=== PATIENT | male | born 1965 | race Caucasian/White ===

== ENCOUNTER 2018-04-20 18:14 | Observation (INO) | payer OTHER ==
[2018-04-20] MEDS ORDERED: NS 1,000 ML IV ONE ×2 (18:33→19:19)
[2018-04-20] MEDS ORDERED: ASPIRIN 81 MG CHEWABLE TAB PO ONE (18:33)
[2018-04-20] MEDS ORDERED: LORazepam 2 MG/ML INJ IVP ONE ×2 (18:33→19:19)
--- NOTE | 2018-04-20 18:38 | EDPHY ---
General - History Smoking Status: Never smoked Time Seen by Provider: 04/20/18 18:34 Narrative: CHIEF COMPLAINT: Chest pain HISTORY OF PRESENT ILLNESS: Patient provides by private vehicle with complaints of chest pain. Chest pain started approximately 1 hr ago while at work. 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 He describes it as a constant pressure type pain. No worse with exertion. Does not radiate. Does have a mild headache and some shortness of breath. He has no extremity erythema edema or pain. No recent travel, trauma or surgery. He does not use testosterone. He feels though this may be related to his anxiety but the chest pain is different from previous episodes. He also has some mild left-sided abdominal pain at times that is intermittent. He has no back pain. No urinary complaints. No rash. No neck pain or stiffness. No fever. No other associated complaints or modifying factors. REVIEW OF SYSTEMS: 10 systems were reviewed and negative with the exception of the elements mentioned in the history of present illness. PCP: Dr. Muhammad SPECIALISTS: None PAST MEDICAL HISTORY: Hypertension, anxiety, possible gout PAST SURGICAL HISTORY: No abdominal surgeries. SOCIAL HISTORY: Nonsmoker. Occasional alcohol use. No marijuana use. Lives independently. Works at [employer] FAMILY HISTORY: Noncontributory EXAMINATION: General Appearance: Alert, no distress. Anxious and fidgeting. Well- appearing. Head: normocephalic, atraumatic Eyes: Pupils equal and round, no conjunctival pallor or injection ENT, Mouth: Mucous membranes moist Neck: Normal inspection, supple, non-tender Respiratory: Lungs are clear to auscultation Cardiovascular: Tachycardic rate. Regular rhythm. No murmur. No carotid bruit appreciated. Good signs of perfusion distally. Gastrointestinal: Obese Abdomen is soft and nontender. No tympany. No rigidity. No guarding. No palpable mass. Bowel sounds present all 4 quadrants with no abdominal bruit. Back: non-tender, no bony abnormalities Neurological: A&O, nonfocal, normal gait Skin: Warm and dry, no rash Extremities: Nontender, no pedal edema Psychiatric: Mood and affect normal DIFFERENTIAL DIAGNOSES: Including but not limited to anxiety reaction, PE, ACS, pericarditis, pleurisy, pneumonitis, reflux, aortic aneurysm, abdominal aneurysm MDM: 6:30 p.m. Acute retrosternal chest pain with tingling of the hands and mouth and feeling anxious as well. This is somewhat different than his previous anxiety responses as he has chest pain that he typically does not have. He does appear to be anxious. His EKG has been reviewed by Dr. Meade reveals sinus tachycardia without ischemia. He is in no acute distress with vital signs otherwise within normal limits. I have ordered troponin, chest x-ray and laboratory study. I have also ordered fluid and Ativan. 7:20 p.m. Patient re-evaluated. His troponin is negative. Laboratory studies are otherwise within normal limits as well. Chest x-ray is negative. He is feeling minimally better following the initial Ativan, thus I have ordered an additional 1 mg and a 2nd L of IV fluid. Continue to monitor. No acute distress 7:45 p.m. Patient has been evaluated by Dr. Meade. Patient's symptoms have improved but not resolved. Dr. Meade recommends admission for observation to rule out ACS. The patient is agreeable to this and preferable this. 8:20 p.m. Case discussed with hospitalist Dr. Maldonado. We discussed the patient's history , HPI and examination. He will admit the patient is service, and he requested D -dimer at this time. I have added this. He is admitted stable condition. He is no longer tachycardic. 8:40 p.m. D-dimer is within normal limits at less than 0.27. He is admitted stable condition. SUPERVISION: Patient was evaluated and examined in conjunction with my secondary supervising physician as documented. We have both examined the patient. EKG interpretation: Dr. Meade Sinus tachycardia. No ischemia CONSULTATION: None (Ruddy Desai) Medical Decision Making: I evaluated this patient with Jensen. This patient had initially onset of difficulty breathing thought he might be having some anxiety or panic issues and then developed some significant substernal chest pressure. The patient still seems quite anxious and even though his initial cardiac enzymes and EKG years significantly unremarkable this patient has never had a provocative test and has a family history of importance. I will admit this patient hospitalist and get provocative testing by Cardiology tomorrow. Patient would prefer this plan is post outpatient workup and after talking to the patient I believe it is the most conservative course. (Jalen Meade) - Diagnostics Imaging Results: Imaging Impressions Chest X-Ray 04/20/18 18:33 Impression: Negative portable chest - Objective Vital Signs: Initial Vital Signs Temperature (C) 97.5 F 04/20/18 18:16 Heart Rate 122 H 04/20/18 18:16 Respiratory Rate 22 H 04/20/18 18:16 Blood Pressure 198/101 H 04/20/18 18:16 O2 Sat (%) 96 04/20/18 18:16 O2 Delivery Mode Room Air Allergies/Adverse Reactions: Penicillins Allergy (Intermediate, Verified 06/20/16 00:12) Hives Home Medications: Medication Instructions Recorded Benacar 06/09/09 Hydrochlorothiazide [HCTZ (*)] 25 mg PO 06/09/09 Xanax 06/09/09 Famotidine [Pepcid] 40 mg PO DAILY #7 tablet 06/11/15 oxyCODONE/APAP 5/325 [Percocet 1 tab PO Q4-6PRN PRN #14 tab 06/11/15 5/325] HYDROcodone/APAP 10/325 [Ulysses 1 - 2 each PO Q4-6PRN PRN #20 tab 06/13/15 10/325] Ondansetron Odt [Zofran Odt 4 mg 4 mg PO Q4 PRN #10 tab 06/13/15 (RX)] Colchicine 0.6 mg PO 06/20/16 oxyCODONE/APAP 5/325 [Percocet 1 - 2 tab PO Q4H PRN #10 tab 06/20/16 5/325 (*)] Laboratory Results: Laboratory Results 04/20/18 18:30 04/20/18 18:30 04/20/18 04/20/18 04/20/18 18:33 18:30 18:30 WBC RBC Hgb Hct MCV MCH MCHC RDW Plt Count MPV Neut % (Auto) Lymph % (Auto) Pettis % (Auto) Eos % (Auto) Baso % (Auto) Nucleat RBC Rel Count Absolute Neuts (auto) Absolute Lymphs (auto) Absolute Monos (auto) Absolute Eos (auto) Absolute Basos (auto) Absolute Nucleated RBC Immature Gran % Immature Gran # D-Dimer < 0.27 ug/mLFEU ug/mLFEU (0.00-0.50) Sodium 135 mEq/L mEq/L (135-145) Potassium 4.6 mEq/L mEq/L (3.3-5.0) Chloride 96 mEq/L L mEq/L (97-110) Carbon Dioxide 25 mEq/l mEq/l (22-31) Anion Gap 14 mEq/L mEq/L (8-16) BUN 17 mg/dL mg/dL (7-23) Creatinine 1.2 mg/dL mg/dL (0.7-1.3) Estimated GFR > 60 Glucose 92 mg/dL mg/dL (70-100) Calcium 9.4 mg/dL mg/dL (8.5-10.4) Total Bilirubin 1.3 mg/dL mg/dL (0.1-1.4) Conjugated Bilirubin 0.2 mg/dL mg/dL (0.0-0.5) Unconjugated Bilirubin 1.1 mg/dL mg/dL (0.0-1.1) AST 35 IU/L IU/L (17-59) ALT 35 IU/L IU/L (21-72) Alkaline Phosphatase 91 IU/L IU/L (38-126) POC Troponin I 0.00 ng/mL ng/mL (0.00-0.08) NT-Pro-B Natriuret Pep < 11 pg/mL pg/mL (0-125) Total Protein 8.2 g/dL g/dL (6.3-8.2) Albumin 4.6 g/dL g/dL (3.5-5.0) Lipase 89 IU/L IU/L (23-300) 04/20/18 18:30 WBC 11.49 10^3/uL H 10^3/uL (3.80-9.50) RBC 5.41 10^6/uL 10^6/uL (4.40-6.38) Hgb 15.4 g/dL g/dL (13.7-17.5) Hct 46.1 % % (40.0-51.0) MCV 85.2 fL fL (81.5-99.8) MCH 28.5 pg pg (27.9-34.1) MCHC 33.4 g/dL g/dL (32.4-36.7) RDW 14.8 % % (11.5-15.2) Plt Count 324 10^3/uL 10^3/uL (150-400) MPV 8.4 fL L fL (8.7-11.7) Neut % (Auto) 45.1 % % (39.3-74.2) Lymph % (Auto) 41.8 % % (15.0-45.0) Pettis % (Auto) 10.5 % % (4.5-13.0) Eos % (Auto) 0.9 % % (0.6-7.6) Baso % (Auto) 1.4 % % (0.3-1.7) Nucleat RBC Rel Count 0.0 % % (0.0-0.2) Absolute Neuts (auto) 5.18 10^3/uL 10^3/uL (1.70-6.50) Absolute Lymphs (auto) 4.80 10^3/uL H 10^3/uL (1.00-3.00) Absolute Monos (auto) 1.21 10^3/uL H 10^3/uL (0.30-0.80) Absolute Eos (auto) 0.10 10^3/uL 10^3/uL (0.03-0.40) Absolute Basos (auto) 0.16 10^3/uL H 10^3/uL (0.02-0.10) Absolute Nucleated RBC 0.00 10^3/uL 10^3/uL (0-0.01) Immature Gran % 0.3 % % (0.0-1.1) Immature Gran # 0.04 10^3/uL 10^3/uL (0.00-0.10) D-Dimer Sodium Potassium Chloride Carbon Dioxide Anion Gap BUN Creatinine Estimated GFR Glucose Calcium Total Bilirubin Conjugated Bilirubin Unconjugated Bilirubin AST ALT Alkaline Phosphatase POC Troponin I NT-Pro-B Natriuret Pep Total Protein Albumin Lipase Medications Given: Discontinued Medications Aspirin (Aspirin) 324 mg PO EDNOW ONE Stop: 04/20/18 18:34 Last Admin: 04/20/18 18:38 Dose: 324 mg Sodium Chloride (Ns) 1,000 mls @ 0 mls/hr IV EDNOW ONE; Wide Open PRN Reason: Protocol Stop: 04/20/18 18:34 Last Admin: 04/20/18 18:38 Dose: 1,000 mls Sodium Chloride (Ns) 1,000 mls @ 0 mls/hr IV EDNOW ONE; Wide Open PRN Reason: Protocol Stop: 04/20/18 19:20 Last Admin: 04/20/18 19:28 Dose: 1,000 mls Lorazepam (Ativan Injection) 1 mg IVP EDNOW ONE Stop: 04/20/18 18:34 Last Admin: 04/20/18 18:40 Dose: 1 mg Lorazepam (Ativan Injection) 1 mg IVP EDNOW ONE Stop: 04/20/18 19:20 Last Admin: 04/20/18 19:29 Dose: 1 mg Point of Care Test Results: Chemistry 04/20/18 18:33 POC Troponin I 0.00 ng/mL ng/mL (0.00-0.08) Departure - Departure Disposition: [facility] Inpatient Acute Clinical Impression: Chest pain Qualifiers: Chest pain type: precordial pain Qualified Code(s): R07.2 - Precordial pain Condition: Fair Referrals: Merritt Chiu MD [Primary Care Provider] - As per Instructions
[2018-04-20 18:47] LABS: PLATELET COUNT 324 10^3/uL (150-400)
[2018-04-20] MEDS ORDERED: ONDANSETRON 4 MG/2 ML VIAL IVP PRN (21:04)
[2018-04-20] MEDS ORDERED: ONDANSETRON DISINTEGRATING 4 MG TAB PO PRN (21:04)
[2018-04-20] MEDS ORDERED: PROMETHAZINE HCL 25 MG/ML INJ IVP PRN (21:04)
[2018-04-20] MEDS ORDERED: PROMETHAZINE HCL 25 MG TAB PO PRN (21:04)
[2018-04-20] MEDS ORDERED: ACETAMINOPHEN 325 MG TAB PO PRN (21:04)
[2018-04-20] MEDS ORDERED: NITROGLYCERIN 0.4 MG BTL SL PRN (21:06)
[2018-04-20] MEDS ORDERED: RANITIDINE 50 MG/2 ML VIAL IVP ONE ×2 (21:11→21:26)
[2018-04-20] MEDS ORDERED: RANITIDINE HCL 150 MG/10 ML UDCUP PO ONE (21:30)
--- NOTE | 2018-04-20 21:36 | PDGENHP ---
History and Physical - Chief Complaint Acute chest pain - History of Present Illness Primary care provider: Dr. Merritt Chiu HPI: 53-year-old male presents with acute chest pain characterized as pounding sensation in his chest radiating to his throat with associated shortness of breath, digital paresthesias, abdominal discomfort, headache, anxiety. The patient reports that the onset of symptoms was at rest, while he was at work and they persisted for the next 3 hr. He reports that they were not alleviated by going outside, taking deep breath, and trying to relax. After receiving Ativan and IV fluids upon arrival, the patient's chest discomfort was alleviated , but his tachycardia persisted. The patient reports that prior to his onset of symptoms, he has been experiencing some muscle aches and some sinus congestion. He also reports that he was prescribed antihypertensive medication by his primary care provider approximately 1 month ago, but he has not started it yet. Utilizes Tylenol and Aleve several times per week for joint pains. Utilizes Zantac on a regular basis for esophageal reflux and although he has been prescribed a proton pump inhibitor, he has yet to started. History Information - Allergies/Home Medication List Allergies/Adverse Reactions: Penicillins Allergy (Intermediate, Verified 06/20/16 00:12) Hives Home Medications: Benacar 06/09/09 [Last Taken 06/09/09] Hydrochlorothiazide [HCTZ (*)] 25 mg PO 06/09/09 [Last Taken 06/09/09] Xanax 06/09/09 [Last Taken Unknown] Colchicine 0.6 mg PO 06/20/16 [Last Taken Unknown] I have personally reviewed and updated: family history, medical history, social history, surgical history - Past Medical History GERD (On H2 kamryn), hypertension Additional medical history: Osteoarthritis and gout. Patient reports possible pericarditis in the past as well as previous EKGs indicating pericarditis with Cardiology evaluations when he was in his early 20s without a definitive diagnosis - Surgical History Reports: no pertinent surgical hx - Family History Additional family history: No family history of coronary artery disease, his father had a thoracic aneurysm, sibling had a cerebral aneurysm - Social History Smoking Status: Never smoked Alcohol Use: Occasionally Drug Use: None Additional social history: Patient works in sales, has a fairly stressful job, he does not engage in scheduled exercise but he describes no exertional symptoms recently Review of Systems Review of Systems: ROS: 10pt was reviewed & negative except for what was stated in HPI & below Cardiac: Reports: chest pain Respiratory: Reports: shortness of breath Neurological: Reports: headache Physical Exam Physical Exam: Temp Pulse Resp BP Pulse Ox 36.4 C 100 20 156/106 H 97 04/20/18 18:16 04/20/18 21:15 04/20/18 21:15 04/20/18 21:15 04/20/18 21:15 Constitutional: no apparent distress, not in pain, obese, No uncomfortable Eyes: PERRL, anicteric sclera, EOMI Ears, Nose, Mouth, Throat: moist mucous membranes, hearing normal, ears appear normal, no oral mucosal ulcers Cardiovascular: tachycardia, No systolic murmur, No irregularly irregular, No edema Respiratory: no respiratory distress, no rales or rhonchi, clear to auscultation Gastrointestinal: normoactive bowel sounds, soft, non-tender abdomen, No guarding, No distension Skin: warm, No rash Neurologic: AAOx3, sensation intact bilaterally, No weakness Psychiatric: interacting appropriately, not anxious, not encephalopathic, thought process linear Lymph, Heme, Immunologic: other (Tender bilateral submandibular lymph nodes approximately 2 cm in diameter, without any anterior posterior cervical lymphadenopathy) Lab Data & Imaging Review 04/20/18 18:30 04/20/18 18:30 WBC 11.49 10^3/uL (3.80-9.50) H 04/20/18 18:30 RBC 5.41 10^6/uL (4.40-6.38) 04/20/18 18:30 Hgb 15.4 g/dL (13.7-17.5) 04/20/18 18:30 Hct 46.1 % (40.0-51.0) 04/20/18 18:30 MCV 85.2 fL (81.5-99.8) 04/20/18 18:30 MCH 28.5 pg (27.9-34.1) 04/20/18 18:30 MCHC 33.4 g/dL (32.4-36.7) 04/20/18 18:30 RDW 14.8 % (11.5-15.2) 04/20/18 18:30 Plt Count 324 10^3/uL (150-400) 04/20/18 18:30 MPV 8.4 fL (8.7-11.7) L 04/20/18 18:30 Neut % (Auto) 45.1 % (39.3-74.2) 04/20/18 18:30 Lymph % (Auto) 41.8 % (15.0-45.0) 04/20/18 18:30 Winkler % (Auto) 10.5 % (4.5-13.0) 04/20/18 18:30 Eos % (Auto) 0.9 % (0.6-7.6) 04/20/18 18:30 Baso % (Auto) 1.4 % (0.3-1.7) 04/20/18 18:30 Nucleat RBC Rel Count 0.0 % (0.0-0.2) 04/20/18 18:30 Absolute Neuts (auto) 5.18 10^3/uL (1.70-6.50) 04/20/18 18:30 Absolute Lymphs (auto) 4.80 10^3/uL (1.00-3.00) H 04/20/18 18:30 Absolute Monos (auto) 1.21 10^3/uL (0.30-0.80) H 04/20/18 18:30 Absolute Eos (auto) 0.10 10^3/uL (0.03-0.40) 04/20/18 18:30 Absolute Basos (auto) 0.16 10^3/uL (0.02-0.10) H 04/20/18 18:30 Absolute Nucleated RBC 0.00 10^3/uL (0-0.01) 04/20/18 18:30 Immature Gran % 0.3 % (0.0-1.1) 04/20/18 18:30 Immature Gran # 0.04 10^3/uL (0.00-0.10) 04/20/18 18:30 D-Dimer < 0.27 ug/mLFEU (0.00-0.50) 04/20/18 18:30 Sodium 135 mEq/L (135-145) 04/20/18 18:30 Potassium 4.6 mEq/L (3.3-5.0) 04/20/18 18:30 Chloride 96 mEq/L (97-110) L 04/20/18 18:30 Carbon Dioxide 25 mEq/l (22-31) 04/20/18 18:30 Anion Gap 14 mEq/L (8-16) 04/20/18 18:30 BUN 17 mg/dL (7-23) 04/20/18 18:30 Creatinine 1.2 mg/dL (0.7-1.3) 04/20/18 18:30 Estimated GFR > 60 04/20/18 18:30 Glucose 92 mg/dL (70-100) 04/20/18 18:30 Calcium 9.4 mg/dL (8.5-10.4) 04/20/18 18:30 Total Bilirubin 1.3 mg/dL (0.1-1.4) 04/20/18 18:30 Conjugated Bilirubin 0.2 mg/dL (0.0-0.5) 04/20/18 18:30 Unconjugated Bilirubin 1.1 mg/dL (0.0-1.1) 04/20/18 18:30 AST 35 IU/L (17-59) 04/20/18 18:30 ALT 35 IU/L (21-72) 04/20/18 18:30 Alkaline Phosphatase 91 IU/L (38-126) 04/20/18 18:30 POC Troponin I 0.00 ng/mL (0.00-0.08) 04/20/18 18:33 NT-Pro-B Natriuret Pep < 11 pg/mL (0-125) 04/20/18 18:30 Total Protein 8.2 g/dL (6.3-8.2) 04/20/18 18:30 Albumin 4.6 g/dL (3.5-5.0) 04/20/18 18:30 Lipase 89 IU/L (23-300) 04/20/18 18:30 Visualized and Interpreted Chest x-ray results: Yes Chest X-Ray results: no infiltrate Visualized and Interpreted EKG results: Yes EKG Interpretation: Positive for: other (Sinus tachycardia with NE depression in the inferior leads) Assessment & Plan Assessment: 53-year-old male presents with acute chest pain Plan: 1. Chest pain. Acute, new problem this provider, further workup indicated. Possible etiologies include acute coronary syndrome versus pericarditis -I have a strong suspicion of pericarditis given his EKG findings, leukocytosis , ongoing tachycardia despite anxiety relief, and reported history of previous pericardiac conduction pattern on his EKG several decades ago -will get echocardiogram to evaluate for pericardial effusion, check respiratory viral panel -cycle cardiac enzymes -monitor on telemetry -given that acute coronary syndrome remains a consideration, will give him beta- kamryn now to treat his tachycardia and hypertension, he has received full- dose aspirin in the ER, will continue, if he has recurrence of chest pain will give sublingual nitroglycerin and consider heparin drip for unstable angina -if his cardiac enzymes remain negative and he is chest pain-free tomorrow, will get nuclear medicine treadmill stress test, given his underlying EKG abnormalities -risk stratification with lipid panel and hemoglobin A1c, reviewed outside records including 12/16/2017 labs indicating LDL 122, not at goal with underlying hypertension -if any of the above evolves, would recommend cardiology consultation 2. Hypertension. Chronic, patient has been prescribed ARB therapy but he has yet to begin, will initiate ARB as well as beta-kamryn above 3. Anxiety. Patient sources underlying anxiety, and although this may be contributing to his presentation, does not appear that this is the underlying etiology, as the patient is currently calm but his heart rate remains around 100 , anxiety alone would be unlikely to cause the aforementioned conduction pattern changes as well as vital sign and laboratory abnormalities -patient requesting prescription for Ativan p.r.n. Until he is able to follow up with his primary care provider 4. GERD. Chronic, continue H2 kamryn, recommend that he initiate PPI empirically in case the above is not secondary to cardiac cause Diet. Cardiac, NPO after midnight Prophylaxis. Low risk, SCDs Code. Full Disposition. Anticipated discharge is 04/21, pending further workup as outlined above. I have discussed patient's EKG with Dr. Jalen Meade, we both agree that there appears to be NE depression in the inferior leads.
[2018-04-20] MEDS: PANTOPRAZOLE SODIUM 40 MG TAB PO SCH (22:21)
[2018-04-20] MEDS: METOPROLOL TARTRATE 25 MG TAB PO SCH (22:24)
[2018-04-20] MEDS: D5W 1/2 NS 1,000 ML IV SCH (23:33)
[2018-04-21] MEDS ORDERED: LORazepam 0.5 MG TAB PO PRN (05:28)
[2018-04-21 06:17] LABS: PLATELET COUNT 211 10^3/uL (150-400)
[2018-04-21] MEDS: PANTOPRAZOLE SODIUM 40 MG TAB PO SCH (08:48)
[2018-04-21] MEDS ORDERED: FAMOTIDINE 20 MG TAB PO SCH (09:00)
[2018-04-21] MEDS ORDERED: ASPIRIN EC 325 MG TAB PO SCH (09:00)
[2018-04-21] MEDS: D5W 1/2 NS 1,000 ML IV SCH (09:04)
[2018-04-21] MEDS ORDERED: REGADENOSON 0.4 MG/5 ML SYR IVP ONE (10:58)
--- NOTE | 2018-04-21 12:22 | CPR ---
DATE OF PROCEDURE: 04/21/2018 CARDIOPULMONARY REPORT PROCEDURE: Exercise nuclear stress test. INDICATION: The patient is a 53-year-old male with a history of hypertension and hyperlipidemia who presented to the hospital with chest pressure and shortness of breath. He was sitting at his desk wh en he suddenly developed some shortness of breath and associated chest pressure. He has a history of anxiety, but this felt slightly different than his typical anxiety attacks. PROCEDURE IN DETAIL: Consent was obtained. The patient was placed on continuous telemetry. His res ting EKG revealed normal sinus rhythm with a heart rate of 83, AR interval of 126, QRS duration of 10 4, and a QTc of 389. He had diffuse nonspecific ST-T wave changes. He did have minimal inferior ST elevation and ST depression in AVR, suggestive of possible pericarditis. The patient walked on the treadmill for 6-1/2 minutes. He denied any chest discomfort associated wit h exercise. He remained in normal sinus rhythm without any ST-T wave changes to suggest ischemia. H is blood pressure at rest was 148/100. His blood pressure peaked at 240/70. It was slow to return t o baseline, taking at least 8 minutes. PLAN: Await nuclear images. He does have hypertension at rest as well as exercise-induced hypertens ion. Consider treatment of his hypertension. /[id number]/MODL
[2018-04-21 12:47] VITALS: BP 158/111
[2018-04-21] MEDS: METOPROLOL TARTRATE 25 MG TAB PO SCH (12:48)
--- NOTE | 2018-04-21 12:56 | ECHO ---
[email or web address] [address] Main: [phone] Fax: Transthoracic Echocardiogram Name: SADIE DO MR#: [id number] Study Date: 04/21/2018 Study Time: 08:07 AM Date of : 1965 Age: 53 year(s) Height: 180.3 cm (71 in.) Weight: 113.85 kg (251 lb.) BSA: 2.32 m2 Gender: Male Examination: Echo Indication: Chest Pain Image Quality: Contrast: Requested by: Venancio Maldonado BP: 150 mmHg/93 mmHg Heart Rate: Rhythm: Normal sinus rhythm Indication: Chest Pain Procedure Staff Clothing Examiner: Chapito Woodall RDCS Reading Physician: Edilson Kumar MD Requesting Provider: Conclusions: Normal global systolic LV function. EF is 69 %. The mitral valve is normal in appearance and function. The aortic valve is normal in appearance and function. Measurements: Chambers Valvular Assessment AV/MV Valvular Assessment TV/PV Normal Normal Normal Name Value Range Name Value Range Name Value Range Ao Kelli (MM): 3.2 cm (2.2 cm-3.7 AV Vmax: 1.33 m/s (1 m/s-1.7 PV Vmax: 1.25 m/s (0.6 m/s-0.9 cm) m/s) m/s) IVSd (2D): 1.0 cm (0.6 cm-1.1 AV maxP mmHg ( - ) PV PGmax: 6 mmHg ( - ) cm) LVOT Vmax: 0.83 m/s (0.7 m/s-1.1 LVDd (2D): 5.5 cm (4.2 cm-5.9 m/s) cm) MV E Vmax: 0.73 m/s ( - ) LVDs (2D): 3.4 cm (2.1 cm-4 MV A Vmax: 0.78 m/s ( - ) cm) MV E/A: 0.94 ( - ) LVPWd (2D): 1.0 cm (0.6 cm-1 cm) LVEF (2D): 69 (>=54 %) Continued Measurements: Valvular Assessment AV/MV Name Value MV E' Septal: 0.07 m/s MV E/E' Septal: 11.00 MV E/E' Lateral: 10.30 Patient: SADIE DO Study Date: 04/21/2018 Page 1 of 2 08:07 AM Findings: Left Ventricle: Normal size left ventricle. No LV hypertrophy. Normal global systolic LV function. EF is 69 %. No regional wall motion abnormality. Normal diastolic LV function. Right Ventricle: Normal size right ventricle. Normal RV function. Left Atrium: The left atrium is normal in size. Right Atrium: The right atrium is normal in size. Mitral Valve: The mitral valve is normal in appearance and function. There is no mitral valve regurgitation. Aortic Valve: The aortic valve is normal in appearance and function. The aortic valve is tri-leaflet. There is no aortic valve regurgitation. Tricuspid Valve: The tricuspid valve is normal in appearance and function. There is no tricuspid valve regurgitation. Pulmonic Valve: The pulmonic valve is normal in appearance and function. Aorta: The aorta is normal. Pericardium: No pericardial effusion. (No Signature Object) Patient: SADIE DO Study Date: 04/21/2018 Page 2 of 2 08:07 AM [id number]
--- NOTE | 2018-04-21 16:40 | CPEKG ---
Test Reason : OPEN Blood Pressure : / mmHG Vent. Rate : 118 BPM Atrial Rate : 118 BPM P-R Int : 163 ms QRS Dur : 095 ms QT Int : 309 ms P-R-T Axes : 051 044 034 degrees QTc Int : 434 ms Sinus tachycardia Confirmed by Venancio Rob ([id number]) on 04/21/2018 4:39:47 PM Referred By: Confirmed By:Venancio Rob
--- NOTE | 2018-04-21 16:54 | CPEKG ---
Test Reason : OPEN Blood Pressure : / mmHG Vent. Rate : 076 BPM Atrial Rate : 076 BPM P-R Int : 139 ms QRS Dur : 102 ms QT Int : 362 ms P-R-T Axes : -18 017 005 degrees QTc Int : 408 ms Sinus rhythm Confirmed by Venancio Rob ([id number]) on 04/21/2018 4:54:22 PM Referred By: Confirmed By:Venancio Rob
--- NOTE | 2018-04-21 19:45 | GDS ---
DISCHARGE DIAGNOSES: 1. Atypical chest pain, resolved. 2. Anxiety disorder with panic attacks. 3. Hypertension. 4. Gastroesophageal reflux disease. CONSULTANTS: None. IMAGING STUDIES/PROCEDURES: 1. Echocardiogram April 21, 2018, showed normal left ventricular function with an ejection fraction of 69% with normal valves and no evidence of pericardial effusion. 2. Nuclear medicine myocardial perfusion scan was negative for evidence of myocardial ischemia. HISTORY: For details please see history and physical dated April 20, 2018, In brief, Mr. South is a 53-year-old male with history of anxiety, hypertension, and GERD who presents to the emergency dep artment with chest pain. He is admitted to the hospital for further management. HOSPITAL COURSE: Patient admitted to the cardiac telemetry unit. Possible etiologies considered inc luded acute coronary syndrome, pericarditis, acid reflux, musculoskeletal origin, or possibly anxiety . He had negative troponins x3. There is no evidence of pericardial effusion on his echocardiogram. His chest pain is completely resolved at the time of discharge. In addition, he had a negative nuc lear medicine stress test. I think it is unlikely to represent angina or acute coronary syndrome. M ost of our conversation on the day of discharge revolves around his severe anxiety disorder and panic symptoms. He states he was able to get off benzodiazepines about a year and a half ago, but feels o verwhelmed by anxiety at times. Given our lengthy discussion about his anxiety, I did ultimately off er him maintenance medication in the form of Celexa to which he agrees. Given this profound presenta tion, he was provided with 5 tablets of 0.5 mg of Ativan to be used p.r.n. while he is waiting for th e Celexa to take affect in an effort to prevent recurrent emergency department visits. We discussed that he and his primary care provider has opted not to use long-term benzodiazepines and the patient understands that long-term use of benzos is not recommended; this is simply a short-term measure unti l he can get better control of his anxiety from a maintenance standpoint. He will continue his H2 bl ocker for GERD symptoms and he could consider transitioning to PPI if this is not controlled. With respect to his hypertension, this is poorly controlled on arrival. He apparently did not start the antihypertensive he has been prescribed as an outpatient. He was started on low-dose metoprolol here. I think this has been helpful for his heart rate and blood pressure, and he will discharge on metoprolol 25 mg twice daily. I do not think this will cause exercise intolerance, though he should have close followup with his PCP for up-titration if needed. DISCHARGE DISPOSITION: Patient is discharged home in stable condition. FOLLOWUP: Merritt Chiu MD; primary care. DISCHARGE MEDICATIONS: Please see [facility] for completed outpatient medication list. 1. Celexa 20 mg p.o. daily #30, no refills. 2. Lorazepam 0.5 mg p.o. daily p.r.n. #5, no refills. 3. Metoprolol 25 mg p.o. b.i.d. #60, no refills. 4. He will continue ranitidine 150 mg p.o. daily p.r.n. /[id number]/MODL
== END 2018-04-21 15:40 | disposition home or self-care (01) ==
LOC: F2W 20:22
PROVIDERS: ADMIT Internal Medicine; ATTEND Internal Medicine
DX: R07.89 Other chest pain (principal); F41.0 Panic disorder [episodic paroxysmal anxiety]; I10 Essential (primary) hypertension; K21.9 Gastro-esophageal reflux disease without esophagitis; E86.9 Volume depletion, unspecified; Z23 Encounter for immunization
CPT/HCPCS: 71045; 78452; 90471; 93005; 93017; 93306; 96361; 96374; 96375; 96376; 99285; A9500; G0378; 84484-PO; G0008; J2060; J2780; J2785

== ENCOUNTER → 2018-12-15 | Outpatient (CLI) | payer OTHER | LOC: CIMAGING 13:18 ==